=== PATIENT | female | born 1950 | race Asian ===

== ENCOUNTER 2019-02-18 17:47 | Emergency (ER) | payer MEDICARE, OTHER, SELFPAY ==
[2019-02-18 17:57] VITALS: BP 160/82; PULSE 78; RESP 18; TEMP 36.8; O2SAT 98
--- NOTE | 2019-02-18 18:58 | PC.NURSE ---
Patient complains of a Roughness under her tongue that started last Ananth. Denies pain and denies injury. Patient states she feels like it is spreading to other parts of her mouth. upon assessment, small red bumps noted throughout mouth. Pt states her swallowing is is not affected.
--- NOTE | 2019-02-18 19:55 | ED.DENTAL ---
HPI - Dental/Oral <NAOMY Moreno - Last Filed: 02/18/19 21:38> General Chief complaint: Dental/Oral Stated complaint: roughness to inside of mouth x2 days Time Seen by Provider: 02/18/19 18:49 Source: patient Mode of arrival: ambulatory Limitations: no limitations History of Present Illness HPI Narrative: Patient is a 5-year-old female nonsmoker with history of high blood pressure who presents with a chief complaint of a rough patches underneath her tongue. She states that the rough patch has been spreading to the top of her mouth. This has been going on for a week. She denies any sore throat, ear pain, nausea vomiting diarrhea, chest pain shortness of breath cough congestion. She has not spoken with her primary care provider or her dentist about these rough patches on the inside of her mouth. She has not taken anything to feel better. Related Data Home Medications Medication Instructions Recorded Confirmed famotidine [Pepcid] 40 mg PO Q DAY #0 01/19/18 losartan [Cozaar] 25 mg PO Q DAY PRN PRN #0 01/19/18 Previous Rx's Medication Instructions Recorded aspirin 325 mg PO QDAY #30 tab 01/05/18 Allergies Allergy/AdvReac Type Severity Reaction Status Date / Time No Known Drug Allergies Allergy Unknown Unverified 02/22/18 12:38 [NO KNOWN DRUG ALLERGIES] atorvastatin [From LIPITOR] AdvReac Unknown BACK PAIN, Unverified 02/22/18 12:38 SEVERE LEG CRAMPS rosuvastatin [From CRESTOR] AdvReac Unknown BACK PAIN, Unverified 02/22/18 12:38 SEVERE LEG CRAMPS Review of Systems <NAOMY Moreno - Last Filed: 02/18/19 21:38> Review of Systems GENERAL: Denies chills, fatigue, malaise, fever, sweats. HEENT: See HPI RESPIRATORY: Denies dyspnea, cough, wheezing, hemoptysis, sputum. CARDIOVASCULAR: Denies chest pain, palpitations, orthopnea, edema, GASTROINTESTINAL: Denies nausea, vomiting, abdominal pain, diarrhea, constipation, melena. : Denies dysuria, frequency, incontinence, hematuria, urinary retention. MUSCULOSKELETAL: denies weakness, joint pain, or bony pain SKIN: Denies rash, skin lesions, or other NEUROLOGIC: Denies weakness, headache, numbness, change in speech, confusion, seizures, incoordination. PSYCHIATRIC: No concerning psychosocial issues. 12 point review of systems is negative except for those stated above PFSH <GEOVANNA Moreno - Last Filed: 02/18/19 21:38> Social History Smoking Status: Never smoker Social History Smoking Status: Never smoker Exam <GEOVANNA Moreno - Last Filed: 02/18/19 21:38> Narrative Exam Narrative: GENERAL: Elderly female standing and rib appears anxious HEAD: Atraumatic. Normocephalic. No temporal or scalp tenderness. EYES: Pupils equal round and reactive. Extraocular motions intact. No scleral icterus. No injection or drainage. ENT: Nose without bleeding, purulent drainage or septal hematoma. Throat without erythema, tonsillar hypertrophy or exudate. slight petechiae noted on palate. Uvula midline. Airway patent. no irregularity noted underneath tongue. No palpable regularity underneath tongue. No palpable irregularity to palate. NECK: Trachea midline. No JVD or lymphadenopathy. Supple, nontender, no meningeal signs. CARDIOVASCULAR: Regular rate and rhythm RESPIRATORY: No cough. No increased respiratory effort. EXTREMITIES: No clubbing, cyanosis, or edema. No joint tenderness, effusion, or edema noted. BACK: Nontender without deformity or crepitance. No flank tenderness. NEURO: AOx3. SKIN: No rash or erythema. Initial Vital Signs Initial Vital Signs: Vital Signs Temperature 98.3 F 02/18/19 17:57 Pulse Rate 78 02/18/19 17:57 Respiratory Rate 18 02/18/19 17:57 Blood Pressure 160/82 H 02/18/19 17:57 Pulse Oximetry 98 02/18/19 17:57 <Haylee Mcarthur DO - Last Filed: 02/19/19 03:50> Initial Vital Signs Initial Vital Signs: Vital Signs Temperature 98.3 F 02/18/19 17:57 Pulse Rate 78 02/18/19 17:57 Respiratory Rate 18 02/18/19 17:57 Blood Pressure 160/82 H 02/18/19 17:57 Pulse Oximetry 98 02/18/19 17:57 Course <Nalini CondonKATHARINE foster-BC - Last Filed: 02/18/19 21:38> Vital Signs - 8 hr 02/18/19 17:57 Temperature 98.3 F Pulse Rate 78 Respiratory Rate 18 Blood Pressure 160/82 H Pulse Oximetry 98 <Haylee Mcarthur DO - Last Filed: 02/19/19 03:50> Vital Signs - 8 hr 02/18/19 17:57 Temperature 98.3 F Pulse Rate 78 Respiratory Rate 18 Blood Pressure 160/82 H Pulse Oximetry 98 MDM - Dental/Oral <Nalini HaywardKATHARINE-BC - Last Filed: 02/18/19 21:38> Lab Data Point of Care Testing Rapid Strep A Negative MDM Narrative Medical decision making narrative: The patient is a 68-year-old female presents with a rough patch underneath her tongue. She has no abnormalities on exam, is nontoxic and hemodynamically stable. she has no other complaints today other than the rough patches underneath her tongue and in her mouth. We did a strep, which was negative. discussed at length with patient that she needs to follow up with primary care provider this irritation persist. I suggested Biotene mouthwash or Cepacol drops in the meantime. Discussed going back to the emergency department for any acute concerns such as shortness of breath or chest pain. Patient stated understanding. <Haylee Mcarthur DO - Last Filed: 02/19/19 03:50> Lab Data Point of Care Testing Rapid Strep A Negative Discharge Plan Departure Patient Disposition: Home Clinical Impression: Throat irritation Discharge Date/Time: 02/18/19 19:53 Interventions: ED Discharge Assessment Last Done: 02/18/19 19:52 Instructions: DI for Viral Pharyngitis Activity Restrictions/Additional Instructions: Your strep swab was negative today. Please follow up with primary care provider if he has continued concerns about the roughness on the inside of her throat. If it is due to a virus, it will self resolve in a few days. You can try a lubricating mouthwash such as Biotene or a throat draft such as Cepacol. Prescriptions: No Action aspirin 325 MG tablet,delayed release (DR/EC) 325 mg PO QDAY Qty: 30 RF: 0 famotidine [Pepcid] 40 MG tablet 40 mg PO Q DAY Qty: 0 RF: 0 losartan [Cozaar] 25 MG tablet 25 mg PO Q DAY PRN PRNQty: 0 RF: 0 <Haylee Mcarthur DO - Last Filed: 02/19/19 03:50> Cosign ED Attending Cosedwinaature Attestation: I was immediately available in the department for consultation. Documentation has been reviewed. I agree with assessment and plan.
== END 2019-02-18 19:53 | disposition home or self-care (01) ==
PROVIDERS: Emergency Provider Nurse Practitioner Family
DX: J39.2 Other diseases of pharynx (principal)
CPT/HCPCS: 87880; 99282

== ENCOUNTER 2020-01-31 09:00 | Outpatient (RCR) | payer MEDICARE, OTHER, SELFPAY ==
--- NOTE | 2020-01-10 16:00 | PT.OIE ---
Current Diagnoses Pain in right hip (01/10/20) Pain in left hip (01/10/20) Sacrococcygeal disorders, not elsewhere classified (01/10/20) Low back pain (01/10/20) Visit Care Team Role Provider Type Julienne Hanna MD Attending Provider Non-Staff Referring Provider Specialty: Internal Medicine Address: [address] [place] [address], [phone] Email: Physical Therapy Initial Evaluation PT-OP-A Visit Information Start: 01/10/20 13:01 Freq: Status: Active Protocol: Document 01/10/20 13:00 EG (Rec: 01/11/20 07:35 EG [email or web address]) Out-Patient Physical Therapy Visit Information Visit Information Visit Type Initial Evaluation Visit Start Time 13:00 Visit Stop Time 13:50 Total Visit Minutes 50 Visit Number 1 Number of GLOVE FORMER Visits 0 Evaluation Information Evaluation Date 01/10/20 PT-OP-B Current Condition Start: 01/10/20 13:01 Freq: Status: Active Protocol: Document 01/10/20 13:00 EG (Rec: 01/10/20 13:17 EG [id number]) Current Condition History of Current Condition Onset Date 12/29/2019 Current Complaints Low back pain with L hip pain History of Current Condition Patient reported that she had low back pain 1.5 years ago and after going to PT, the pain went away. On 12/29 she experienced low back pain with the pain mostly in the L hip area. She reports that the low back pain is not bad and her main complaint is more L hip pain. She reports not doing anything unusual before experiencing her pain, but she did yoga on the earlier in the day which she typically does 3-4x/week. She didn't experience any sharp pain or notice anything different when doing yoga but she feels the pain in hip is getting worse. Standing up from a low sitting position makes it worse as well as rotating towards the left side. At night her pain is pretty painful and she uses a heat pack to help alleviate the pain to sleep. She reports an average of 5/10 pain in the hip which is worse in the morning, better when moving throughout the day and then by the evening, shehas a lot of problems; she also reports having restless leg syndrome. Along with yoga, patient also reports walking about an hour 3-4x/week. No increase in pain on L hip with walking but sitting irritates the pain and when she reports that when she sits in a high or low chair and gets off she walks funny. She denies any N/ T initially but later explains that she does have a little numbness in the L leg. She denies any changes in bowel/ bladder. Patient currently lives with her . Prior Treatments and Tests Heat Pack Past PT for back Treatment Goals Patient/Caregiver Goals Decrease your pain - go back to normal life. Went to PT for 2 months. Prior Functional Status Baseline Function- ADL's Independent Baseline Function- Mobility Independent Baseline Function- Gait Walk 3-4x/week with for an hour Baseline Function- Work/School Retired Baseline Function- Recreation/Hobbies Activties/Hobbies: Fishing, golfing, yoga. Current Functional Impairments (Reported) Functional Limitations- ADL's Discomfort sleeping on L side Functional Limitations- Mobility/Gait Morning have trouble with stairs. Functional Limitations- Recreation/ Not going to yoga, decreased Hobbies walking speed and distance with Personal Factors Other Personal Factors That May Effect Current medications: BP meds. Therapy/Recovery cholesterol, restless leg, antiacid. past history of going to ED for TIA due to loss of vision for 20 min. Osteopenia PT-OP-C Subjective Start: 01/10/20 13:01 Freq: Status: Active Protocol: Document 01/10/20 13:00 EG (Rec: 01/11/20 08:44 EG [email or web address]) Patient Questionnaires Oswestry Low Back Index Oswestry Score 40 Oswestry Impairment 40 to 59% Impaired (Score 40- 59) OP-PT Pain Assessment Pain Assessment Grid Paper Pain Assessment Grid Completed Yes: 5 in L hip and sacrum; 5 in lateral calf PT-OP-G Mobility & Gait Start: 01/10/20 13:01 Freq: Status: Active Protocol: Document 01/10/20 13:00 EG (Rec: 01/11/20 08:56 EG [email or web address]) OP Mobility Evaluation Transfers Sit to Stand Reports pain with this activity when seated for long duration or moving from deep sofa OP Gait Assessment Comments Gait Comments Patient had increased pelvic movement in L side with increased lateral deviation. Movement of pelvis assymmetrical PT-OP-J Posture/Palpation/Skin Start: 01/10/20 13:01 Freq: Status: Active Protocol: Document 01/10/20 13:00 EG (Rec: 01/11/20 08:56 EG [email or web address]) Palpation Assessment Location Four Palpation Location L1-L5 Palpation Findings Tenderness Palpation Details Patient had increased pain directly over L2-L3 but is just point tenderness. felt good for PA of L5. Three Palpation Location Bilateral Erector Spinae Palpation Findings None/Normal Palpation Details No increase in tenderness or tightness in bilateral erector spinae Two Palpation Location L ischial tuberosity Palpation Findings Tenderness Palpation Details Increased tenderness of L ischial tuberosity compares to R. Reported as same pain that patient experiences when seated One Palpation Location L gluteal musculature/ piriformis Palpation Findings None/Normal Palpation Details No increase in symptoms PT-OP-K Range of Motion Start: 01/10/20 13:01 Freq: Status: Active Protocol: Document 01/10/20 13:00 EG (Rec: 01/11/20 08:56 EG [email or web address]) Lumbar Spine Range of Motion Lumbar Spine Degrees Testing Position Standing Flexion 20 Extension 10 Lateral Flexion Left 20 Lateral Flexion Right 25 ROM Limitations Pain Comments P! in back moving in to lumbar flexion. P! moving in to lumbar extension. Lateral flexion to the R creates p! in L hip. Lateral flexion to L created p! in back PT-OP-L Special Tests Start: 01/10/20 13:01 Freq: Status: Active Protocol: Document 01/10/20 13:00 EG (Rec: 01/11/20 08:56 EG [email or web address]) Special Tests Lumbar Spine Special Tests Standing Flexion Test Results + Straight Leg Raise Test Results + Comments Increased p! in R leg at 45deg Hip Special Tests Piriformis Test Results - IVANIA Test Results - PT-OP-M Strength Start: 01/10/20 13:01 Freq: Status: Active Protocol: Document 01/10/20 13:00 EG (Rec: 01/11/20 08:56 EG [email or web address]) Hip Strength Hip Manual Muscle Testing Right Flexion (L2) 4- Good- Extension (S1) 4- Good- Abduction 4- Good- External Rotation 4 Good Internal Rotation 4 Good Left Flexion (L2) 4- Good- Extension (S1) 3+ Fair+ Abduction 3+ Fair+ External Rotation 4 Good Internal Rotation 4 Good Comments No increase in pain Knee Strength Knee Manual Muscle Testing Right Flexion (S2) 4 Good Extension (L3) 4 Good Left Flexion (S2) 4 Good Extension (L3) 4 Good Ankle/Foot Strength Ankle and Foot Manual Muscle Testing Right Dorsiflexion (L4) 4+ Good+ Left Dorsiflexion (L4) 4+ Good+ PT-OP-Q Treatments Start: 01/10/20 13:01 Freq: Status: Active Protocol: Document 01/10/20 13:00 EG (Rec: 01/11/20 08:59 EG [email or web address]) Therapeutic Exercises Supine Exercises Hamstring Stretch Supine Exercise Name HS stretch Side left Reps/Minutes 1 min Comments Given as HEP TA pelvic tilt Supine Exercise Name TA pelvic tilt Reps/Minutes 10x Comments given as HEP PT-OP-T Assessment and Plan Start: 01/10/20 13:01 Freq: Status: Active Protocol: Document 01/10/20 13:00 EG (Rec: 01/11/20 08:59 EG [email or web address]) Physical Therapy Assessment Rehab Potential Rehabilitation Potential Excellent Evaluation Complexity Number of Personal Factors/Comorbidities 3 or More Number of Body Systems Impaired 4 or More Clinical Presentation at Evaluation Stable Impairments Impairments Activity Tolerance,Functional Activities,Functional Mobility ,Gait,Pain,ROM,Soft Tissue Mobility,Strength Goals ROM Impairment Lumbar spine ROM Patient Experience Coordinator Goal (LTG) Patient will increase lumbar flexion to 40 degrees with no increase in pain in low back in 6 weeks to increase tolerance to forward folds in yoga. LTG Duration 6 weeks Stairs and walking tolerance Impairment Stairs and Walking tolerance Short Term Goal (STG) Patient will be able to do stairs in the morning after 5- 10 minutes of being awake with no more than 2/10 in L hip and back in 3 weeks. STG Duration 3 weeks Patient Experience Coordinator Goal (LTG) Patient will be able to return to prior walking distance and speed with no increase in pain in L hip and back in 6 weeks. LTG Duration 6 weeks Sitting Tolerance Impairment Sitting Tolerance Short Term Goal (STG) Patient will be able to sit for >30 minutes with no increase in pain greater than 1/10 in her L hip in 4 weeks. STG Duration 3 weeks Shelter Goal (LTG) Patient will be able to sit for greater than 1 hour and stand from deep sofa with no increase in pain in her L hip >1/10 in 8 weeks. LTG Duration 6 weeks Assessment Summary Assessment Patient is a pleasant 69 year old female who reports to physical therapy with cheif complaint of low back pain with increased pain in the L hip. Evaluation of hip and back ruled out hip as cause of symptoms with no complaint of pain with ROM or MMT nor any popping/snapping reported in hip in subjective. Patient does have increased pain with spinal ROM especially in to lumbar flexion as well as palpation of L ischial tuberosity indicating source of pain coming from low back due to movement defecits. Patient's hip musculature is weak and will benefit from increased strengthening of this area to help with stability and support of back when walking and performing SLS in yoga movements. Patient may have a slight strain in proximal hamstring near attachment to ischial tuberosity due to point tenderness of this area so flexibility of L posterior chain including L hamstring and L quadratus lumborum should be treated to increase tolerance of movement and load in this area. Patient will benefit from deep core strengthening as well as static and dynamic lateral and anterior/posterior movements to further increase stability and ROM in lumbar spine. Physical Therapy Plan Frequency and Duration Frequency of Treatment 2x/Week Duration of Treatment 6 weeks Plan of Care Start Date 01/10/20 Plan of Care End Date 02/21/20 Therapeutic Interventions Therapeutic Interventions Balance Training,Gait Training ,Home Exercise Program,Joint Mobilizations,Manual Therapy, Neuromuscular Re-education, Patient/Caregiver Education, Self-Care/Home Management,Soft Tissue Mobilization,Taping, Therapeutic Activities, Therapeutic Exercises Modalities Cold Pack/Ice Massage,Electric Stimulation,Ultrasound Next Visit Focus/Plan Next Note Type Treatment Note Next Visit Plan Assess proximal hamstring tenderness with contraction. Begin PA mobilization of L5. Increase core strengthening as well as slight extension movements such as sphinx and cobra as tolerated. Hannah Osuna DPT, supervised all treatment performed by, and agreed with the plan of care, as performed by Shawanda Rob, MAURICE.
--- NOTE | 2020-01-15 09:45 | PT.OTN ---
Current Diagnoses Pain in right hip (01/15/20) Pain in left hip (01/15/20) Sacrococcygeal disorders, not elsewhere classified (01/15/20) Low back pain (01/15/20) Physical Therapy Treatment Note PT-OP-A Visit Information Start: 01/10/20 13:01 Freq: Status: Active Protocol: Document 01/15/20 09:03 SP (Rec: 01/15/20 09:46 SP [id number]) Out-Patient Physical Therapy Visit Information Visit Information Visit Type Treatment Note Visit Start Time 09:03 Visit Stop Time 09:45 Total Visit Minutes 42 Visit Number 2 Number of STRATEGIC BUSINESS DEVELOPMENT Visits 1 PT-OP-B Current Condition Start: 01/10/20 13:01 Freq: Status: Active Protocol: Document 01/10/20 13:00 EG (Rec: 01/10/20 13:17 EG [id number]) Current Condition History of Current Condition Onset Date 12/29/2019 Current Complaints Low back pain with L hip pain History of Current Condition Patient reported that she had low back pain 1.5 years ago and after going to PT, the pain went away. On 12/29 she experienced low back pain with the pain mostly in the L hip area. She reports that the low back pain is not bad and her main complaint is more L hip pain. She reports not doing anything unusual before experiencing her pain, but she did yoga on the earlier in the day which she typically does 3-4x/week. She didn't experience any sharp pain or notice anything different when doing yoga but she feels the pain in hip is getting worse. Standing up from a low sitting position makes it worse as well as rotating towards the left side. At night her pain is pretty painful and she uses a heat pack to help alleviate the pain to sleep. She reports an average of 5/10 pain in the hip which is worse in the morning, better when moving throughout the day and then by the evening, shehas a lot of problems; she also reports having restless leg syndrome. Along with yoga, patient also reports walking about an hour 3-4x/week. No increase in pain on L hip with walking but sitting irritates the pain and when she reports that when she sits in a high or low chair and gets off she walks funny. She denies any N/ T initially but later explains that she does have a little numbness in the L leg. She denies any changes in bowel/ bladder. Patient currently lives with her . Prior Treatments and Tests Heat Pack Past PT for back Treatment Goals Patient/Caregiver Goals Decrease your pain - go back to normal life. Went to PT for 2 months. Prior Functional Status Baseline Function- ADL's Independent Baseline Function- Mobility Independent Baseline Function- Gait Walk 3-4x/week with for an hour Baseline Function- Work/School Retired Baseline Function- Recreation/Hobbies Activties/Hobbies: Fishing, golfing, yoga. Current Functional Impairments (Reported) Functional Limitations- ADL's Discomfort sleeping on L side Functional Limitations- Mobility/Gait Morning have trouble with stairs. Functional Limitations- Recreation/ Not going to yoga, decreased Hobbies walking speed and distance with Personal Factors Other Personal Factors That May Effect Current medications: BP meds. Therapy/Recovery cholesterol, restless leg, antiacid. past history of going to ED for TIA due to loss of vision for 20 min. Osteopenia PT-OP-C Subjective Start: 01/10/20 13:01 Freq: Status: Active Protocol: Document 01/15/20 09:03 SP (Rec: 01/15/20 09:46 SP [id number]) OP-PT Subjective Patient Comments Patient Comments Pt reported L LB and hip pain pre PT today, 01/21. Pt stated unsure if doing belly tighnening correctly and used towel with HS stretch due to hasn't found strap. Pt stated does yoga and wants to get back to doing. PT-OP-G Mobility & Gait Start: 01/10/20 13:01 Freq: Status: Active Protocol: Document 01/10/20 13:00 EG (Rec: 01/11/20 08:56 EG [email or web address]) OP Mobility Evaluation Transfers Sit to Stand Reports pain with this activity when seated for long duration or moving from deep sofa OP Gait Assessment Comments Gait Comments Patient had increased pelvic movement in L side with increased lateral deviation. Movement of pelvis assymmetrical PT-OP-J Posture/Palpation/Skin Start: 01/10/20 13:01 Freq: Status: Active Protocol: Document 01/10/20 13:00 EG (Rec: 01/11/20 08:56 EG [email or web address]) Palpation Assessment Location Four Palpation Location L1-L5 Palpation Findings Tenderness Palpation Details Patient had increased pain directly over L2-L3 but is just point tenderness. felt good for PA of L5. Three Palpation Location Bilateral Erector Spinae Palpation Findings None/Normal Palpation Details No increase in tenderness or tightness in bilateral erector spinae Two Palpation Location L ischial tuberosity Palpation Findings Tenderness Palpation Details Increased tenderness of L ischial tuberosity compares to R. Reported as same pain that patient experiences when seated One Palpation Location L gluteal musculature/ piriformis Palpation Findings None/Normal Palpation Details No increase in symptoms PT-OP-K Range of Motion Start: 01/10/20 13:01 Freq: Status: Active Protocol: Document 01/10/20 13:00 EG (Rec: 01/11/20 08:56 EG [email or web address]) Lumbar Spine Range of Motion Lumbar Spine Degrees Testing Position Standing Flexion 20 Extension 10 Lateral Flexion Left 20 Lateral Flexion Right 25 ROM Limitations Pain Comments P! in back moving in to lumbar flexion. P! moving in to lumbar extension. Lateral flexion to the R creates p! in L hip. Lateral flexion to L created p! in back PT-OP-L Special Tests Start: 01/10/20 13:01 Freq: Status: Active Protocol: Document 01/10/20 13:00 EG (Rec: 01/11/20 08:56 EG [email or web address]) Special Tests Lumbar Spine Special Tests Standing Flexion Test Results + Straight Leg Raise Test Results + Comments Increased p! in R leg at 45deg Hip Special Tests Piriformis Test Results - IVANIA Test Results - PT-OP-M Strength Start: 01/10/20 13:01 Freq: Status: Active Protocol: Document 01/10/20 13:00 EG (Rec: 01/11/20 08:56 EG [email or web address]) Hip Strength Hip Manual Muscle Testing Right Flexion (L2) 4- Good- Extension (S1) 4- Good- Abduction 4- Good- External Rotation 4 Good Internal Rotation 4 Good Left Flexion (L2) 4- Good- Extension (S1) 3+ Fair+ Abduction 3+ Fair+ External Rotation 4 Good Internal Rotation 4 Good Comments No increase in pain Knee Strength Knee Manual Muscle Testing Right Flexion (S2) 4 Good Extension (L3) 4 Good Left Flexion (S2) 4 Good Extension (L3) 4 Good Ankle/Foot Strength Ankle and Foot Manual Muscle Testing Right Dorsiflexion (L4) 4+ Good+ Left Dorsiflexion (L4) 4+ Good+ PT-OP-Q Treatments Start: 01/10/20 13:01 Freq: Status: Active Protocol: Document 01/15/20 09:03 SP (Rec: 01/15/20 09:46 SP [id number]) Therapeutic Exercises Supine Exercises core march Reps/Minutes 2x5 alternate BLE Comments cued PPT, slow muscular control to allow core facilitation Hamstring Stretch Supine Exercise Name HS stretch Side left Reps/Minutes 1 min Comments Given as HEP TA pelvic tilt Supine Exercise Name TA pelvic tilt Reps/Minutes 10x Comments given as HEP Prone Exercises child's pose side bend Side bilateral Reps/Minutes 30 x3 Sitting Exercises PF stretch Reps/Minutes 30 x2 L PT-OP-T Assessment and Plan Start: 01/10/20 13:01 Freq: Status: Active Protocol: Document 01/15/20 09:03 SP (Rec: 01/15/20 09:46 SP [id number]) Physical Therapy Assessment Goals ROM Impairment Lumbar spine ROM Wellness Coordinator Goal (LTG) Patient will increase lumbar flexion to 40 degrees with no increase in pain in low back in 6 weeks to increase tolerance to forward folds in yoga. LTG Duration 6 weeks Stairs and walking tolerance Impairment Stairs and Walking tolerance Short Term Goal (STG) Patient will be able to do stairs in the morning after 5- 10 minutes of being awake with no more than 2/10 in L hip and back in 3 weeks. STG Duration 3 weeks Wellness Coordinator Goal (LTG) Patient will be able to return to prior walking distance and speed with no increase in pain in L hip and back in 6 weeks. LTG Duration 6 weeks Sitting Tolerance Impairment Sitting Tolerance Short Term Goal (STG) Patient will be able to sit for >30 minutes with no increase in pain greater than 1/10 in her L hip in 4 weeks. STG Duration 3 weeks Wellness Coordinator Goal (LTG) Patient will be able to sit for greater than 1 hour and stand from deep sofa with no increase in pain in her L hip >1/10 in 8 weeks. LTG Duration 6 weeks Assessment Summary Assessment Pt responded well to HEP review pelvic tilt/Hs stretch and added trans ab january, LS rotation to tolerant range and PF/ QL stretching today. Pt stated LB and L hip feel better end of tx than when arrived. Physical Therapy Plan Frequency and Duration Frequency of Treatment 2x/Week Duration of Treatment 6 weeks Plan of Care Start Date 01/10/20 Plan of Care End Date 02/21/20 Therapeutic Interventions Therapeutic Interventions Balance Training,Gait Training ,Home Exercise Program,Joint Mobilizations,Manual Therapy, Neuromuscular Re-education, Patient/Caregiver Education, Self-Care/Home Management,Soft Tissue Mobilization,Taping, Therapeutic Activities, Therapeutic Exercises Modalities Cold Pack/Ice Massage,Electric Stimulation,Ultrasound Next Visit Focus/Plan Next Note Type Treatment Note Next Visit Plan Assess TAb engagement, response to added core march, LS rotation, PF seated stretch , child's pose sidebend last tx Continue PT POC: Begin PA mobilization of L5. Increase core strengthening as well as slight extension movements such as sphinx and cobra as tolerated.
--- NOTE | 2020-01-17 15:24 | PT.OTN ---
Current Diagnoses Pain in right hip (01/17/20) Pain in left hip (01/17/20) Sacrococcygeal disorders, not elsewhere classified (01/17/20) Low back pain (01/17/20) Physical Therapy Treatment Note PT-OP-A Visit Information Start: 01/10/20 13:01 Freq: Status: Active Protocol: Document 01/17/20 13:01 EG (Rec: 01/17/20 14:19 EG [id number]) Out-Patient Physical Therapy Visit Information Visit Information Visit Type Treatment Note Visit Start Time 13:01 Visit Stop Time 13:45 Total Visit Minutes 44 Visit Number 3 Number of NOUGAT CUTTER MACHINE Visits 0 PT-OP-B Current Condition Start: 01/10/20 13:01 Freq: Status: Active Protocol: Document 01/10/20 13:00 EG (Rec: 01/10/20 13:17 EG [id number]) Current Condition History of Current Condition Onset Date 12/29/2019 Current Complaints Low back pain with L hip pain History of Current Condition Patient reported that she had low back pain 1.5 years ago and after going to PT, the pain went away. On 12/29 she experienced low back pain with the pain mostly in the L hip area. She reports that the low back pain is not bad and her main complaint is more L hip pain. She reports not doing anything unusual before experiencing her pain, but she did yoga on the earlier in the day which she typically does 3-4x/week. She didn't experience any sharp pain or notice anything different when doing yoga but she feels the pain in hip is getting worse. Standing up from a low sitting position makes it worse as well as rotating towards the left side. At night her pain is pretty painful and she uses a heat pack to help alleviate the pain to sleep. She reports an average of 5/10 pain in the hip which is worse in the morning, better when moving throughout the day and then by the evening, shehas a lot of problems; she also reports having restless leg syndrome. Along with yoga, patient also reports walking about an hour 3-4x/week. No increase in pain on L hip with walking but sitting irritates the pain and when she reports that when she sits in a high or low chair and gets off she walks funny. She denies any N/ T initially but later explains that she does have a little numbness in the L leg. She denies any changes in bowel/ bladder. Patient currently lives with her . Prior Treatments and Tests Heat Pack Past PT for back Treatment Goals Patient/Caregiver Goals Decrease your pain - go back to normal life. Went to PT for 2 months. Prior Functional Status Baseline Function- ADL's Independent Baseline Function- Mobility Independent Baseline Function- Gait Walk 3-4x/week with for an hour Baseline Function- Work/School Retired Baseline Function- Recreation/Hobbies Activties/Hobbies: Fishing, golfing, yoga. Current Functional Impairments (Reported) Functional Limitations- ADL's Discomfort sleeping on L side Functional Limitations- Mobility/Gait Morning have trouble with stairs. Functional Limitations- Recreation/ Not going to yoga, decreased Hobbies walking speed and distance with Personal Factors Other Personal Factors That May Effect Current medications: BP meds. Therapy/Recovery cholesterol, restless leg, antiacid. past history of going to ED for TIA due to loss of vision for 20 min. Osteopenia PT-OP-C Subjective Start: 01/10/20 13:01 Freq: Status: Active Protocol: Document 01/17/20 13:01 EG (Rec: 01/17/20 14:19 EG [id number]) OP-PT Subjective Patient Comments Patient Comments Patient reported that her hip pain is the worst in the morning and feels it is worse since starting therapy. She was able to walk 1 hour yesterday but feels she is going a little slower. She reports a 3-4/10 pain right now. Patient Reported Progress Worse PT-OP-G Mobility & Gait Start: 01/10/20 13:01 Freq: Status: Active Protocol: Document 01/10/20 13:00 EG (Rec: 01/11/20 08:56 EG [email or web address]) OP Mobility Evaluation Transfers Sit to Stand Reports pain with this activity when seated for long duration or moving from deep sofa OP Gait Assessment Comments Gait Comments Patient had increased pelvic movement in L side with increased lateral deviation. Movement of pelvis assymmetrical PT-OP-J Posture/Palpation/Skin Start: 01/10/20 13:01 Freq: Status: Active Protocol: Document 01/10/20 13:00 EG (Rec: 01/11/20 08:56 EG [email or web address]) Palpation Assessment Location Four Palpation Location L1-L5 Palpation Findings Tenderness Palpation Details Patient had increased pain directly over L2-L3 but is just point tenderness. felt good for PA of L5. Three Palpation Location Bilateral Erector Spinae Palpation Findings None/Normal Palpation Details No increase in tenderness or tightness in bilateral erector spinae Two Palpation Location L ischial tuberosity Palpation Findings Tenderness Palpation Details Increased tenderness of L ischial tuberosity compares to R. Reported as same pain that patient experiences when seated One Palpation Location L gluteal musculature/ piriformis Palpation Findings None/Normal Palpation Details No increase in symptoms PT-OP-K Range of Motion Start: 01/10/20 13:01 Freq: Status: Active Protocol: Document 01/10/20 13:00 EG (Rec: 01/11/20 08:56 EG [email or web address]) Lumbar Spine Range of Motion Lumbar Spine Degrees Testing Position Standing Flexion 20 Extension 10 Lateral Flexion Left 20 Lateral Flexion Right 25 ROM Limitations Pain Comments P! in back moving in to lumbar flexion. P! moving in to lumbar extension. Lateral flexion to the R creates p! in L hip. Lateral flexion to L created p! in back PT-OP-L Special Tests Start: 01/10/20 13:01 Freq: Status: Active Protocol: Document 01/10/20 13:00 EG (Rec: 01/11/20 08:56 EG [email or web address]) Special Tests Lumbar Spine Special Tests Standing Flexion Test Results + Straight Leg Raise Test Results + Comments Increased p! in R leg at 45deg Hip Special Tests Piriformis Test Results - IVANIA Test Results - PT-OP-M Strength Start: 01/10/20 13:01 Freq: Status: Active Protocol: Document 01/10/20 13:00 EG (Rec: 01/11/20 08:56 EG [email or web address]) Hip Strength Hip Manual Muscle Testing Right Flexion (L2) 4- Good- Extension (S1) 4- Good- Abduction 4- Good- External Rotation 4 Good Internal Rotation 4 Good Left Flexion (L2) 4- Good- Extension (S1) 3+ Fair+ Abduction 3+ Fair+ External Rotation 4 Good Internal Rotation 4 Good Comments No increase in pain Knee Strength Knee Manual Muscle Testing Right Flexion (S2) 4 Good Extension (L3) 4 Good Left Flexion (S2) 4 Good Extension (L3) 4 Good Ankle/Foot Strength Ankle and Foot Manual Muscle Testing Right Dorsiflexion (L4) 4+ Good+ Left Dorsiflexion (L4) 4+ Good+ PT-OP-Q Treatments Start: 01/10/20 13:01 Freq: Status: Active Protocol: Document 01/17/20 13:01 EG (Rec: 01/17/20 14:19 EG [id number]) Cardio Equipment Treadmill Duration (Minutes) 5 Speed 2.2-2.5 Incline 1.0 Therapeutic Exercises Supine Exercises LTR supine Supine Exercise Name Supine LTR Reps/Minutes 10 each side Comments no increase in pain core march Supine Exercise Name TA engagement with march Reps/Minutes 10x each leg Comments cued PPT, slow muscular control to allow core facilitation TA pelvic tilt Supine Exercise Name TA pelvic tilt Reps/Minutes 10x Comments help with correct muscle contraction - cough Prone Exercises Cobra Prone Exercise Name Cobra (small and large movements) Reps/Minutes 8x low, 8x high Comments no increase in pain; cue to bring shoulders back child's pose side bend Prone Exercise Name Child's pose with side bend Side bilateral Reps/Minutes 30 sec each side Comments pillow under heels Standing Exercises Step-up Standing Exercise Name Step-up Side bilateral Equipment Used 6 inch step Comments 10x each side Hip Abduction/extension Standing Exercise Name Hip abduction/Hip extension Side bilateral Equipment Used stair rail for support Reps/Minutes 2x10 each leg and each direction Comments Slightly more pain in L hip at end of set 2 gastroc/HS stretch Standing Exercise Name gastroc/HS stretch Side bilateral Reps/Minutes 30sec each Comments 2x30 for gastroc Other Exercises Cat/Cow Other Exercise Name Cat/Cow Reps/Minutes 5x Comments tactile cue in low back to emphasize movement here Manual Therapy Treatment Soft Tissue Mobilization Piriformis Trigger Point Release Body Location Piriformis Mobilization Type Trigger Point Release Intensity/Depth Deep Body Position side-lying Comments [place] increase tension while performing with some release after Joint Mobilizations 1 Joint Central and Unilateral PA glide L4/L5 Direction PA Grade II Body Position Prone Reps/Duration 90 sec each position Comments felt good to patient Manual Techniques Contract/Relax Type Contract/Relax Body Location Proximal Hamstring Body Position Supine Reps/Duration 5x Comments L Hamstring stretch PT-OP-T Assessment and Plan Start: 01/10/20 13:01 Freq: Status: Active Protocol: Document 01/17/20 13:01 EG (Rec: 01/17/20 14:19 EG [id number]) Physical Therapy Assessment Assessment Summary Assessment Patient is having increased hip pain in the morning after starting therapy. HEP was reviewed as well as sleeping position to ensure good form when doing these motions. Patient does have a history of an L4/L5 disk bulge so extension based exercises as well as hip and core strengthening should be emphasized to decrease and referring pain from back. L4/ L5 PA mobilizations are also beneficial for patient. There was also an increase in tension and pain in piriformis so trigger point release done . Patient reported she felt slightly better at the end of the session. Physical Therapy Plan Frequency and Duration Frequency of Treatment 2x/Week Duration of Treatment 6 weeks Plan of Care Start Date 01/10/20 Plan of Care End Date 02/21/20 Next Visit Focus/Plan Next Note Type Treatment Note Next Visit Plan Continue Central and unilateral PA mobilization of L5. Assess how patient felt after last session. Trigger point/myofascial release of piriformis. Continue core and hip strengthening as tolerated . Hannah Osuna DPT, supervised all treatment performed by, and agreed with the plan of care, as performed by MAURICE Castillo.
--- NOTE | 2020-01-22 13:10 | PT.OTN ---
Current Diagnoses Pain in right hip (01/22/20) Pain in left hip (01/22/20) Sacrococcygeal disorders, not elsewhere classified (01/22/20) Low back pain (01/22/20) Physical Therapy Treatment Note PT-OP-A Visit Information Start: 01/10/20 13:01 Freq: Status: Active Protocol: Document 01/22/20 12:15 SP (Rec: 01/22/20 13:25 SP [id number]) Out-Patient Physical Therapy Visit Information Visit Information Visit Type Treatment Note Visit Start Time 12:15 Visit Stop Time 13:10 Total Visit Minutes 55 Visit Number 4 Number of AVIATION PROGRAM MANAGER Visits 1 PT-OP-B Current Condition Start: 01/10/20 13:01 Freq: Status: Active Protocol: Document 01/10/20 13:00 EG (Rec: 01/10/20 13:17 EG [id number]) Current Condition History of Current Condition Onset Date 12/29/2019 Current Complaints Low back pain with L hip pain History of Current Condition Patient reported that she had low back pain 1.5 years ago and after going to PT, the pain went away. On 12/29 she experienced low back pain with the pain mostly in the L hip area. She reports that the low back pain is not bad and her main complaint is more L hip pain. She reports not doing anything unusual before experiencing her pain, but she did yoga on the earlier in the day which she typically does 3-4x/week. She didn't experience any sharp pain or notice anything different when doing yoga but she feels the pain in hip is getting worse. Standing up from a low sitting position makes it worse as well as rotating towards the left side. At night her pain is pretty painful and she uses a heat pack to help alleviate the pain to sleep. She reports an average of 5/10 pain in the hip which is worse in the morning, better when moving throughout the day and then by the evening, shehas a lot of problems; she also reports having restless leg syndrome. Along with yoga, patient also reports walking about an hour 3-4x/week. No increase in pain on L hip with walking but sitting irritates the pain and when she reports that when she sits in a high or low chair and gets off she walks funny. She denies any N/ T initially but later explains that she does have a little numbness in the L leg. She denies any changes in bowel/ bladder. Patient currently lives with her . Prior Treatments and Tests Heat Pack Past PT for back Treatment Goals Patient/Caregiver Goals Decrease your pain - go back to normal life. Went to PT for 2 months. Prior Functional Status Baseline Function- ADL's Independent Baseline Function- Mobility Independent Baseline Function- Gait Walk 3-4x/week with for an hour Baseline Function- Work/School Retired Baseline Function- Recreation/Hobbies Activties/Hobbies: Fishing, golfing, yoga. Current Functional Impairments (Reported) Functional Limitations- ADL's Discomfort sleeping on L side Functional Limitations- Mobility/Gait Morning have trouble with stairs. Functional Limitations- Recreation/ Not going to yoga, decreased Hobbies walking speed and distance with Personal Factors Other Personal Factors That May Effect Current medications: BP meds. Therapy/Recovery cholesterol, restless leg, antiacid. past history of going to ED for TIA due to loss of vision for 20 min. Osteopenia PT-OP-C Subjective Start: 01/10/20 13:01 Freq: Status: Active Protocol: Document 01/22/20 12:15 SP (Rec: 01/22/20 13:25 SP [id number]) OP-PT Subjective Patient Comments Patient Comments Pt reported R hip started to hurt after last tx but good today. Pt noticed has had lBP on L when rotates trunk left for toileting hygiene mgt wiping and still more L than right hip pain after wakes up from sleeping. Pt stated compliant with walking about an hour on [address] to end and back and supine exercises. PT-OP-G Mobility & Gait Start: 01/10/20 13:01 Freq: Status: Active Protocol: Document 01/10/20 13:00 EG (Rec: 01/11/20 08:56 EG [email or web address]) OP Mobility Evaluation Transfers Sit to Stand Reports pain with this activity when seated for long duration or moving from deep sofa OP Gait Assessment Comments Gait Comments Patient had increased pelvic movement in L side with increased lateral deviation. Movement of pelvis assymmetrical PT-OP-J Posture/Palpation/Skin Start: 01/10/20 13:01 Freq: Status: Active Protocol: Document 01/10/20 13:00 EG (Rec: 01/11/20 08:56 EG [email or web address]) Palpation Assessment Location Four Palpation Location L1-L5 Palpation Findings Tenderness Palpation Details Patient had increased pain directly over L2-L3 but is just point tenderness. felt good for PA of L5. Three Palpation Location Bilateral Erector Spinae Palpation Findings None/Normal Palpation Details No increase in tenderness or tightness in bilateral erector spinae Two Palpation Location L ischial tuberosity Palpation Findings Tenderness Palpation Details Increased tenderness of L ischial tuberosity compares to R. Reported as same pain that patient experiences when seated One Palpation Location L gluteal musculature/ piriformis Palpation Findings None/Normal Palpation Details No increase in symptoms PT-OP-K Range of Motion Start: 01/10/20 13:01 Freq: Status: Active Protocol: Document 01/10/20 13:00 EG (Rec: 01/11/20 08:56 EG [email or web address]) Lumbar Spine Range of Motion Lumbar Spine Degrees Testing Position Standing Flexion 20 Extension 10 Lateral Flexion Left 20 Lateral Flexion Right 25 ROM Limitations Pain Comments P! in back moving in to lumbar flexion. P! moving in to lumbar extension. Lateral flexion to the R creates p! in L hip. Lateral flexion to L created p! in back PT-OP-L Special Tests Start: 01/10/20 13:01 Freq: Status: Active Protocol: Document 01/10/20 13:00 EG (Rec: 01/11/20 08:56 EG [email or web address]) Special Tests Lumbar Spine Special Tests Standing Flexion Test Results + Straight Leg Raise Test Results + Comments Increased p! in R leg at 45deg Hip Special Tests Piriformis Test Results - IVANIA Test Results - PT-OP-M Strength Start: 01/10/20 13:01 Freq: Status: Active Protocol: Document 01/10/20 13:00 EG (Rec: 01/11/20 08:56 EG [email or web address]) Hip Strength Hip Manual Muscle Testing Right Flexion (L2) 4- Good- Extension (S1) 4- Good- Abduction 4- Good- External Rotation 4 Good Internal Rotation 4 Good Left Flexion (L2) 4- Good- Extension (S1) 3+ Fair+ Abduction 3+ Fair+ External Rotation 4 Good Internal Rotation 4 Good Comments No increase in pain Knee Strength Knee Manual Muscle Testing Right Flexion (S2) 4 Good Extension (L3) 4 Good Left Flexion (S2) 4 Good Extension (L3) 4 Good Ankle/Foot Strength Ankle and Foot Manual Muscle Testing Right Dorsiflexion (L4) 4+ Good+ Left Dorsiflexion (L4) 4+ Good+ PT-OP-Q Treatments Start: 01/10/20 13:01 Freq: Status: Active Protocol: Document 01/22/20 12:15 SP (Rec: 01/22/20 13:25 SP [id number]) Cardio Equipment Treadmill Duration (Minutes) 5 Speed 2.3-2.5 Incline 1.0 Therapeutic Exercises Supine Exercises LTR supine Supine Exercise Name Supine LTR Reps/Minutes 10 each side Comments no increase in pain core march Supine Exercise Name TA engagement with march Reps/Minutes 20x each leg Comments cued PPT, slow muscular control to allow core facilitation Hamstring Stretch Supine Exercise Name HS stretch Side bilateral Equipment Used strap Reps/Minutes 1 min Comments Given as HEP Prone Exercises LE hip ext Side bilateral Reps/Minutes 2x5 Comments cued prone on hands Cobra Prone Exercise Name Cobra (small and large movements) Reps/Minutes 30 sec hold stretch, 8x low, 8x high Comments no increase in pain; cue to bring shoulders back child's pose side bend Prone Exercise Name Child's pose with side bend Side bilateral Reps/Minutes 30 sec each side Comments pillow under heels Sitting Exercises PF stretch Side bilateral Reps/Minutes 30 x2 Comments R tighter than L today Other Exercises modified bird dog Other Exercise Name LE only Side bilateral Equipment Used small cymro ball under belly, noodle under wrists Reps/Minutes 2x5 each Comments cued level pelvis Cat/Cow Other Exercise Name Cat/Cow Equipment Used noodle under wrists Reps/Minutes 5x Comments tactile cue in low back to emphasize movement here Manual Therapy Treatment Soft Tissue Mobilization Piriformis Trigger Point Release Body Location Piriformis Mobilization Type Trigger Point Release Intensity/Depth Moderate Body Position Standing Comments Instruction in self performance racquetball at wall in R >L PF for home relief. Joint Mobilizations 1 Joint Central and Unilateral PA glide L4/L5 Direction PA Grade II Body Position Prone Reps/Duration 90 sec each position Comments felt good to patient PT-OP-T Assessment and Plan Start: 01/10/20 13:01 Freq: Status: Active Protocol: Document 01/22/20 12:15 SP (Rec: 01/22/20 13:25 SP [id number]) Physical Therapy Assessment Goals ROM Impairment Lumbar spine ROM Roll Line Operator Goal (LTG) Patient will increase lumbar flexion to 40 degrees with no increase in pain in low back in 6 weeks to increase tolerance to forward folds in yoga. LTG Duration 6 weeks Stairs and walking tolerance Impairment Stairs and Walking tolerance Short Term Goal (STG) Patient will be able to do stairs in the morning after 5- 10 minutes of being awake with no more than 2/10 in L hip and back in 3 weeks. STG Duration 3 weeks Jail Goal (LTG) Patient will be able to return to prior walking distance and speed with no increase in pain in L hip and back in 6 weeks. LTG Duration 6 weeks Sitting Tolerance Impairment Sitting Tolerance Short Term Goal (STG) Patient will be able to sit for >30 minutes with no increase in pain greater than 1/10 in her L hip in 4 weeks. STG Duration 3 weeks Jail Goal (LTG) Patient will be able to sit for greater than 1 hour and stand from deep sofa with no increase in pain in her L hip >1/10 in 8 weeks. LTG Duration 6 weeks Assessment Summary Assessment Tx focused on flexibility in LS and hips and added self STMs using racquetball at wall on PF for home self relief application. Pt responded well to HEP review supine/prone and added LE ext prone and modified LE bird dog with support over cymro ball, required noodle under B wrists for comfort, uses rolled yoga mat at classes. Pt stated no pain end of tx but today was a good day. Physical Therapy Plan Frequency and Duration Frequency of Treatment 2x/Week Duration of Treatment 6 weeks Plan of Care Start Date 01/10/20 Plan of Care End Date 02/21/20 Therapeutic Interventions Therapeutic Interventions Balance Training,Gait Training ,Home Exercise Program,Joint Mobilizations,Manual Therapy, Neuromuscular Re-education, Patient/Caregiver Education, Self-Care/Home Management,Soft Tissue Mobilization,Taping, Therapeutic Activities, Therapeutic Exercises Modalities Cold Pack/Ice Massage,Electric Stimulation,Ultrasound Next Visit Focus/Plan Next Note Type Treatment Note Next Visit Plan Continue Central and unilateral PA mobilization of L5. Assess how patient felt after last session. Trigger point/myofascial release of piriformis. Continue core and hip strengthening as tolerated .
--- NOTE | 2020-01-25 14:30 | PT.OTN ---
Current Diagnoses Pain in right hip (01/25/20) Pain in left hip (01/25/20) Sacrococcygeal disorders, not elsewhere classified (01/25/20) Low back pain (01/25/20) Physical Therapy Treatment Note PT-OP-A Visit Information Start: 01/10/20 13:01 Freq: Status: Active Protocol: Document 01/25/20 13:49 SP (Rec: 01/25/20 15:28 SP [id number]) Out-Patient Physical Therapy Visit Information Visit Information Visit Type Treatment Note Visit Start Time 13:49 Visit Stop Time 14:30 Total Visit Minutes 41 Visit Number 5 Number of CHILD CARE COORDINATOR Visits 2 PT-OP-B Current Condition Start: 01/10/20 13:01 Freq: Status: Active Protocol: Document 01/10/20 13:00 EG (Rec: 01/10/20 13:17 EG [id number]) Current Condition History of Current Condition Onset Date 12/29/2019 Current Complaints Low back pain with L hip pain History of Current Condition Patient reported that she had low back pain 1.5 years ago and after going to PT, the pain went away. On 12/29 she experienced low back pain with the pain mostly in the L hip area. She reports that the low back pain is not bad and her main complaint is more L hip pain. She reports not doing anything unusual before experiencing her pain, but she did yoga on the earlier in the day which she typically does 3-4x/week. She didn't experience any sharp pain or notice anything different when doing yoga but she feels the pain in hip is getting worse. Standing up from a low sitting position makes it worse as well as rotating towards the left side. At night her pain is pretty painful and she uses a heat pack to help alleviate the pain to sleep. She reports an average of 5/10 pain in the hip which is worse in the morning, better when moving throughout the day and then by the evening, shehas a lot of problems; she also reports having restless leg syndrome. Along with yoga, patient also reports walking about an hour 3-4x/week. No increase in pain on L hip with walking but sitting irritates the pain and when she reports that when she sits in a high or low chair and gets off she walks funny. She denies any N/ T initially but later explains that she does have a little numbness in the L leg. She denies any changes in bowel/ bladder. Patient currently lives with her . Prior Treatments and Tests Heat Pack Past PT for back Treatment Goals Patient/Caregiver Goals Decrease your pain - go back to normal life. Went to PT for 2 months. Prior Functional Status Baseline Function- ADL's Independent Baseline Function- Mobility Independent Baseline Function- Gait Walk 3-4x/week with for an hour Baseline Function- Work/School Retired Baseline Function- Recreation/Hobbies Activties/Hobbies: Fishing, golfing, yoga. Current Functional Impairments (Reported) Functional Limitations- ADL's Discomfort sleeping on L side Functional Limitations- Mobility/Gait Morning have trouble with stairs. Functional Limitations- Recreation/ Not going to yoga, decreased Hobbies walking speed and distance with Personal Factors Other Personal Factors That May Effect Current medications: BP meds. Therapy/Recovery cholesterol, restless leg, antiacid. past history of going to ED for TIA due to loss of vision for 20 min. Osteopenia PT-OP-C Subjective Start: 01/10/20 13:01 Freq: Status: Active Protocol: Document 01/25/20 13:49 SP (Rec: 01/25/20 15:28 SP [id number]) OP-PT Subjective Patient Comments Patient Comments Pt reports only pain in L hip around to the L LB in the morning, in weird positions laying down but better as day progresses. No pain pre PT. Pt stated was able to walk [place] about 1 hr 15 min with no pain on uneven trails. PT-OP-G Mobility & Gait Start: 01/10/20 13:01 Freq: Status: Active Protocol: Document 01/10/20 13:00 EG (Rec: 01/11/20 08:56 EG [email or web address]) OP Mobility Evaluation Transfers Sit to Stand Reports pain with this activity when seated for long duration or moving from deep sofa OP Gait Assessment Comments Gait Comments Patient had increased pelvic movement in L side with increased lateral deviation. Movement of pelvis assymmetrical PT-OP-J Posture/Palpation/Skin Start: 01/10/20 13:01 Freq: Status: Active Protocol: Document 01/10/20 13:00 EG (Rec: 01/11/20 08:56 EG [email or web address]) Palpation Assessment Location Four Palpation Location L1-L5 Palpation Findings Tenderness Palpation Details Patient had increased pain directly over L2-L3 but is just point tenderness. felt good for PA of L5. Three Palpation Location Bilateral Erector Spinae Palpation Findings None/Normal Palpation Details No increase in tenderness or tightness in bilateral erector spinae Two Palpation Location L ischial tuberosity Palpation Findings Tenderness Palpation Details Increased tenderness of L ischial tuberosity compares to R. Reported as same pain that patient experiences when seated One Palpation Location L gluteal musculature/ piriformis Palpation Findings None/Normal Palpation Details No increase in symptoms PT-OP-K Range of Motion Start: 01/10/20 13:01 Freq: Status: Active Protocol: Document 01/10/20 13:00 EG (Rec: 01/11/20 08:56 EG [email or web address]) Lumbar Spine Range of Motion Lumbar Spine Degrees Testing Position Standing Flexion 20 Extension 10 Lateral Flexion Left 20 Lateral Flexion Right 25 ROM Limitations Pain Comments P! in back moving in to lumbar flexion. P! moving in to lumbar extension. Lateral flexion to the R creates p! in L hip. Lateral flexion to L created p! in back PT-OP-L Special Tests Start: 01/10/20 13:01 Freq: Status: Active Protocol: Document 01/10/20 13:00 EG (Rec: 01/11/20 08:56 EG [email or web address]) Special Tests Lumbar Spine Special Tests Standing Flexion Test Results + Straight Leg Raise Test Results + Comments Increased p! in R leg at 45deg Hip Special Tests Piriformis Test Results - IVANIA Test Results - PT-OP-M Strength Start: 01/10/20 13:01 Freq: Status: Active Protocol: Document 01/10/20 13:00 EG (Rec: 01/11/20 08:56 EG [email or web address]) Hip Strength Hip Manual Muscle Testing Right Flexion (L2) 4- Good- Extension (S1) 4- Good- Abduction 4- Good- External Rotation 4 Good Internal Rotation 4 Good Left Flexion (L2) 4- Good- Extension (S1) 3+ Fair+ Abduction 3+ Fair+ External Rotation 4 Good Internal Rotation 4 Good Comments No increase in pain Knee Strength Knee Manual Muscle Testing Right Flexion (S2) 4 Good Extension (L3) 4 Good Left Flexion (S2) 4 Good Extension (L3) 4 Good Ankle/Foot Strength Ankle and Foot Manual Muscle Testing Right Dorsiflexion (L4) 4+ Good+ Left Dorsiflexion (L4) 4+ Good+ PT-OP-Q Treatments Start: 01/10/20 13:01 Freq: Status: Active Protocol: Document 01/25/20 13:49 SP (Rec: 01/25/20 15:28 SP [id number]) Cardio Equipment Treadmill Duration (Minutes) 8 Speed 2.3-2.5 Incline 1.0-2.0 Other no Ue support Gym Equipment Cable Column (Body Solid) pull down Resistance #2 Reps/Time x10 Rows Resistance #2 Reps/Time x10 Therapeutic Exercises Supine Exercises LTR supine Supine Exercise Name Supine LTR Reps/Minutes 10 each side hold 5-10 sec each Comments no increase in pain Prone Exercises LE hip ext Side bilateral Reps/Minutes x10 Comments cued prone on hands Sitting Exercises PF stretch Side bilateral Reps/Minutes 30 x2 Comments R tighter than L today Standing Exercises Step-up Standing Exercise Name single repetitive Step-up Side bilateral Equipment Used 4 step x10, 6 inch step x10 Comments no Ue support gastroc/HS stretch Standing Exercise Name gastroc/HS stretch Side bilateral Reps/Minutes 30sec each Comments 2x30 for gastroc Other Exercises modified bird dog Other Exercise Name bird dog Ue/ LE ext together Side bilateral Reps/Minutes x5 Comments cued slow pacing, on fists to assist wrist comfort Manual Therapy Treatment Soft Tissue Mobilization Piriformis Trigger Point Release Body Location L pirformis, Glut Med, TFL Mobilization Type Trigger Point Release Intensity/Depth Moderate Body Position Prone Comments PRone manual, standing theracane Instruction in self performance or racquetball at wall in R >L PF for home relief. PT-OP-T Assessment and Plan Start: 01/10/20 13:01 Freq: Status: Active Protocol: Document 01/25/20 13:49 SP (Rec: 01/25/20 15:28 SP [id number]) Physical Therapy Assessment Goals ROM Impairment Lumbar spine ROM [facility] Goal (LTG) Patient will increase lumbar flexion to 40 degrees with no increase in pain in low back in 6 weeks to increase tolerance to forward folds in yoga. LTG Duration 6 weeks Stairs and walking tolerance Impairment Stairs and Walking tolerance Short Term Goal (STG) Patient will be able to do stairs in the morning after 5- 10 minutes of being awake with no more than 2/10 in L hip and back in 3 weeks. STG Duration 3 weeks [facility] Goal (LTG) Patient will be able to return to prior walking distance and speed with no increase in pain in L hip and back in 6 weeks. LTG Duration 6 weeks Sitting Tolerance Impairment Sitting Tolerance Short Term Goal (STG) Patient will be able to sit for >30 minutes with no increase in pain greater than 1/10 in her L hip in 4 weeks. STG Duration 3 weeks [facility] Goal (LTG) Patient will be able to sit for greater than 1 hour and stand from deep sofa with no increase in pain in her L hip >1/10 in 8 weeks. LTG Duration 6 weeks Assessment Summary Assessment Pt reported when used to go to the gym did 2.8 mph on TM at 7% incline with no UE support, would like to get back to doing that. Instructed patient use of theracane over glut med for self STMs after manual and she stated similar to cane uses at home but might get racquet ball as well for wall as did last tx. Provided cues for prone L ext and bird dog for proper form with slow pacing. Pt responded well and stated helpful with no pain made it feel better after exercises tighening during LTR to R. Physical Therapy Plan Frequency and Duration Frequency of Treatment 2x/Week Duration of Treatment 6 weeks Plan of Care Start Date 01/10/20 Plan of Care End Date 02/21/20 Therapeutic Interventions Therapeutic Interventions Balance Training,Gait Training ,Home Exercise Program,Joint Mobilizations,Manual Therapy, Neuromuscular Re-education, Patient/Caregiver Education, Self-Care/Home Management,Soft Tissue Mobilization,Taping, Therapeutic Activities, Therapeutic Exercises Modalities Cold Pack/Ice Massage,Electric Stimulation,Ultrasound Next Visit Focus/Plan Next Note Type Treatment Note Next Visit Plan Assess how patient felt after last session. Continue Central and unilateral PA mobilization of L5. Trigger point/myofascial release of piriformis, glut med, TFL. Continue core and hip strengthening as tolerated.
--- NOTE | 2020-01-29 09:45 | PT.OTN ---
Current Diagnoses Pain in right hip (01/29/20) Pain in left hip (01/29/20) Sacrococcygeal disorders, not elsewhere classified (01/29/20) Low back pain (01/29/20) Physical Therapy Treatment Note PT-OP-A Visit Information Start: 01/10/20 13:01 Freq: Status: Active Protocol: Document 01/25/20 13:49 SP (Rec: 01/25/20 15:28 SP [id number]) Out-Patient Physical Therapy Visit Information Visit Information Visit Type Treatment Note Visit Start Time 13:49 Visit Stop Time 14:30 Total Visit Minutes 41 Visit Number 5 Number of CERTIFIED APPLIANCE SERVICE TECHNICIAN Visits 2 PT-OP-B Current Condition Start: 01/10/20 13:01 Freq: Status: Active Protocol: Document 01/10/20 13:00 EG (Rec: 01/10/20 13:17 EG [id number]) Current Condition History of Current Condition Onset Date 12/29/2019 Current Complaints Low back pain with L hip pain History of Current Condition Patient reported that she had low back pain 1.5 years ago and after going to PT, the pain went away. On 12/29 she experienced low back pain with the pain mostly in the L hip area. She reports that the low back pain is not bad and her main complaint is more L hip pain. She reports not doing anything unusual before experiencing her pain, but she did yoga on the earlier in the day which she typically does 3-4x/week. She didn't experience any sharp pain or notice anything different when doing yoga but she feels the pain in hip is getting worse. Standing up from a low sitting position makes it worse as well as rotating towards the left side. At night her pain is pretty painful and she uses a heat pack to help alleviate the pain to sleep. She reports an average of 5/10 pain in the hip which is worse in the morning, better when moving throughout the day and then by the evening, shehas a lot of problems; she also reports having restless leg syndrome. Along with yoga, patient also reports walking about an hour 3-4x/week. No increase in pain on L hip with walking but sitting irritates the pain and when she reports that when she sits in a high or low chair and gets off she walks funny. She denies any N/ T initially but later explains that she does have a little numbness in the L leg. She denies any changes in bowel/ bladder. Patient currently lives with her . Prior Treatments and Tests Heat Pack Past PT for back Treatment Goals Patient/Caregiver Goals Decrease your pain - go back to normal life. Went to PT for 2 months. Prior Functional Status Baseline Function- ADL's Independent Baseline Function- Mobility Independent Baseline Function- Gait Walk 3-4x/week with for an hour Baseline Function- Work/School Retired Baseline Function- Recreation/Hobbies Activties/Hobbies: Fishing, golfing, yoga. Current Functional Impairments (Reported) Functional Limitations- ADL's Discomfort sleeping on L side Functional Limitations- Mobility/Gait Morning have trouble with stairs. Functional Limitations- Recreation/ Not going to yoga, decreased Hobbies walking speed and distance with Personal Factors Other Personal Factors That May Effect Current medications: BP meds. Therapy/Recovery cholesterol, restless leg, antiacid. past history of going to ED for TIA due to loss of vision for 20 min. Osteopenia PT-OP-C Subjective Start: 01/10/20 13:01 Freq: Status: Active Protocol: Document 01/25/20 13:49 SP (Rec: 01/25/20 15:28 SP [id number]) OP-PT Subjective Patient Comments Patient Comments Pt reports only pain in L hip around to the L LB in the morning, in weird positions laying down but better as day progresses. No pain pre PT. Pt stated was able to walk [facility] about 1 hr 15 min with no pain on uneven trails. PT-OP-G Mobility & Gait Start: 01/10/20 13:01 Freq: Status: Active Protocol: Document 01/10/20 13:00 EG (Rec: 01/11/20 08:56 EG [email or web address]) OP Mobility Evaluation Transfers Sit to Stand Reports pain with this activity when seated for long duration or moving from deep sofa OP Gait Assessment Comments Gait Comments Patient had increased pelvic movement in L side with increased lateral deviation. Movement of pelvis assymmetrical PT-OP-J Posture/Palpation/Skin Start: 01/10/20 13:01 Freq: Status: Active Protocol: Document 01/10/20 13:00 EG (Rec: 01/11/20 08:56 EG [email or web address]) Palpation Assessment Location Four Palpation Location L1-L5 Palpation Findings Tenderness Palpation Details Patient had increased pain directly over L2-L3 but is just point tenderness. felt good for PA of L5. Three Palpation Location Bilateral Erector Spinae Palpation Findings None/Normal Palpation Details No increase in tenderness or tightness in bilateral erector spinae Two Palpation Location L ischial tuberosity Palpation Findings Tenderness Palpation Details Increased tenderness of L ischial tuberosity compares to R. Reported as same pain that patient experiences when seated One Palpation Location L gluteal musculature/ piriformis Palpation Findings None/Normal Palpation Details No increase in symptoms PT-OP-K Range of Motion Start: 01/10/20 13:01 Freq: Status: Active Protocol: Document 01/10/20 13:00 EG (Rec: 01/11/20 08:56 EG [email or web address]) Lumbar Spine Range of Motion Lumbar Spine Degrees Testing Position Standing Flexion 20 Extension 10 Lateral Flexion Left 20 Lateral Flexion Right 25 ROM Limitations Pain Comments P! in back moving in to lumbar flexion. P! moving in to lumbar extension. Lateral flexion to the R creates p! in L hip. Lateral flexion to L created p! in back PT-OP-L Special Tests Start: 01/10/20 13:01 Freq: Status: Active Protocol: Document 01/10/20 13:00 EG (Rec: 01/11/20 08:56 EG [email or web address]) Special Tests Lumbar Spine Special Tests Standing Flexion Test Results + Straight Leg Raise Test Results + Comments Increased p! in R leg at 45deg Hip Special Tests Piriformis Test Results - IVANIA Test Results - PT-OP-M Strength Start: 01/10/20 13:01 Freq: Status: Active Protocol: Document 01/10/20 13:00 EG (Rec: 01/11/20 08:56 EG [email or web address]) Hip Strength Hip Manual Muscle Testing Right Flexion (L2) 4- Good- Extension (S1) 4- Good- Abduction 4- Good- External Rotation 4 Good Internal Rotation 4 Good Left Flexion (L2) 4- Good- Extension (S1) 3+ Fair+ Abduction 3+ Fair+ External Rotation 4 Good Internal Rotation 4 Good Comments No increase in pain Knee Strength Knee Manual Muscle Testing Right Flexion (S2) 4 Good Extension (L3) 4 Good Left Flexion (S2) 4 Good Extension (L3) 4 Good Ankle/Foot Strength Ankle and Foot Manual Muscle Testing Right Dorsiflexion (L4) 4+ Good+ Left Dorsiflexion (L4) 4+ Good+ PT-OP-Q Treatments Start: 01/10/20 13:01 Freq: Status: Active Protocol: Document 01/25/20 13:49 SP (Rec: 01/25/20 15:28 SP [id number]) Cardio Equipment Treadmill Duration (Minutes) 8 Speed 2.3-2.5 Incline 1.0-2.0 Other no Ue support Gym Equipment Cable Column (Body Solid) pull down Resistance #2 Reps/Time x10 Rows Resistance #2 Reps/Time x10 Therapeutic Exercises Supine Exercises LTR supine Supine Exercise Name Supine LTR Reps/Minutes 10 each side hold 5-10 sec each Comments no increase in pain Prone Exercises LE hip ext Side bilateral Reps/Minutes x10 Comments cued prone on hands Sitting Exercises PF stretch Side bilateral Reps/Minutes 30 x2 Comments R tighter than L today Standing Exercises Step-up Standing Exercise Name single repetitive Step-up Side bilateral Equipment Used 4 step x10, 6 inch step x10 Comments no Ue support gastroc/HS stretch Standing Exercise Name gastroc/HS stretch Side bilateral Reps/Minutes 30sec each Comments 2x30 for gastroc Other Exercises modified bird dog Other Exercise Name bird dog Ue/ LE ext together Side bilateral Reps/Minutes x5 Comments cued slow pacing, on fists to assist wrist comfort Manual Therapy Treatment Soft Tissue Mobilization Piriformis Trigger Point Release Body Location L pirformis, Glut Med, TFL Mobilization Type Trigger Point Release Intensity/Depth Moderate Body Position Prone Comments PRone manual, standing theracane Instruction in self performance or racquetball at wall in R >L PF for home relief. PT-OP-T Assessment and Plan Start: 01/10/20 13:01 Freq: Status: Active Protocol: Document 01/25/20 13:49 SP (Rec: 01/25/20 15:28 SP [id number]) Physical Therapy Assessment Goals ROM Impairment Lumbar spine ROM Correction Goal (LTG) Patient will increase lumbar flexion to 40 degrees with no increase in pain in low back in 6 weeks to increase tolerance to forward folds in yoga. LTG Duration 6 weeks Stairs and walking tolerance Impairment Stairs and Walking tolerance Short Term Goal (STG) Patient will be able to do stairs in the morning after 5- 10 minutes of being awake with no more than 2/10 in L hip and back in 3 weeks. STG Duration 3 weeks Correction Goal (LTG) Patient will be able to return to prior walking distance and speed with no increase in pain in L hip and back in 6 weeks. LTG Duration 6 weeks Sitting Tolerance Impairment Sitting Tolerance Short Term Goal (STG) Patient will be able to sit for >30 minutes with no increase in pain greater than 1/10 in her L hip in 4 weeks. STG Duration 3 weeks Correction Goal (LTG) Patient will be able to sit for greater than 1 hour and stand from deep sofa with no increase in pain in her L hip >1/10 in 8 weeks. LTG Duration 6 weeks Assessment Summary Assessment Pt reported when used to go to the gym did 2.8 mph on TM at 7% incline with no UE support, would like to get back to doing that. Instructed patient use of theracane over glut med for self STMs after manual and she stated similar to cane uses at home but might get racquet ball as well for wall as did last tx. Provided cues for prone L ext and bird dog for proper form with slow pacing. Pt responded well and stated helpful with no pain made it feel better after exercises tighening during LTR to R. Physical Therapy Plan Frequency and Duration Frequency of Treatment 2x/Week Duration of Treatment 6 weeks Plan of Care Start Date 01/10/20 Plan of Care End Date 02/21/20 Therapeutic Interventions Therapeutic Interventions Balance Training,Gait Training ,Home Exercise Program,Joint Mobilizations,Manual Therapy, Neuromuscular Re-education, Patient/Caregiver Education, Self-Care/Home Management,Soft Tissue Mobilization,Taping, Therapeutic Activities, Therapeutic Exercises Modalities Cold Pack/Ice Massage,Electric Stimulation,Ultrasound Next Visit Focus/Plan Next Note Type Treatment Note Next Visit Plan Assess how patient felt after last session. Continue Central and unilateral PA mobilization of L5. Trigger point/myofascial release of piriformis, glut med, TFL. Continue core and hip strengthening as tolerated.
--- NOTE | 2020-01-29 10:30 | PT.OTN ---
Current Diagnoses Pain in right hip (01/29/20) Pain in left hip (01/29/20) Sacrococcygeal disorders, not elsewhere classified (01/29/20) Low back pain (01/29/20) Physical Therapy Treatment Note PT-OP-A Visit Information Start: 01/10/20 13:01 Freq: Status: Active Protocol: Document 01/29/20 09:47 SP (Rec: 01/29/20 10:45 SP [id number]) Out-Patient Physical Therapy Visit Information Visit Information Visit Type Treatment Note Visit Start Time 09:47 Visit Stop Time 10:30 Total Visit Minutes 43 Visit Number 6 Number of ROLL REPAIRER Visits 3 PT-OP-B Current Condition Start: 01/10/20 13:01 Freq: Status: Active Protocol: Document 01/10/20 13:00 EG (Rec: 01/10/20 13:17 EG [id number]) Current Condition History of Current Condition Onset Date 12/29/2019 Current Complaints Low back pain with L hip pain History of Current Condition Patient reported that she had low back pain 1.5 years ago and after going to PT, the pain went away. On 12/29 she experienced low back pain with the pain mostly in the L hip area. She reports that the low back pain is not bad and her main complaint is more L hip pain. She reports not doing anything unusual before experiencing her pain, but she did yoga on the earlier in the day which she typically does 3-4x/week. She didn't experience any sharp pain or notice anything different when doing yoga but she feels the pain in hip is getting worse. Standing up from a low sitting position makes it worse as well as rotating towards the left side. At night her pain is pretty painful and she uses a heat pack to help alleviate the pain to sleep. She reports an average of 5/10 pain in the hip which is worse in the morning, better when moving throughout the day and then by the evening, shehas a lot of problems; she also reports having restless leg syndrome. Along with yoga, patient also reports walking about an hour 3-4x/week. No increase in pain on L hip with walking but sitting irritates the pain and when she reports that when she sits in a high or low chair and gets off she walks funny. She denies any N/ T initially but later explains that she does have a little numbness in the L leg. She denies any changes in bowel/ bladder. Patient currently lives with her . Prior Treatments and Tests Heat Pack Past PT for back Treatment Goals Patient/Caregiver Goals Decrease your pain - go back to normal life. Went to PT for 2 months. Prior Functional Status Baseline Function- ADL's Independent Baseline Function- Mobility Independent Baseline Function- Gait Walk 3-4x/week with for an hour Baseline Function- Work/School Retired Baseline Function- Recreation/Hobbies Activties/Hobbies: Fishing, golfing, yoga. Current Functional Impairments (Reported) Functional Limitations- ADL's Discomfort sleeping on L side Functional Limitations- Mobility/Gait Morning have trouble with stairs. Functional Limitations- Recreation/ Not going to yoga, decreased Hobbies walking speed and distance with Personal Factors Other Personal Factors That May Effect Current medications: BP meds. Therapy/Recovery cholesterol, restless leg, antiacid. past history of going to ED for TIA due to loss of vision for 20 min. Osteopenia PT-OP-C Subjective Start: 01/10/20 13:01 Freq: Status: Active Protocol: Document 01/29/20 09:47 SP (Rec: 01/29/20 10:45 SP [id number]) OP-PT Subjective Patient Comments Patient Comments Pt reproted little L hip discomfort 2/10 pre PT but over all getting better. Doesn 't have pain usually during her walks outside but still little when sits more than 30 min and if goes up stairs to quickly. PT-OP-G Mobility & Gait Start: 01/10/20 13:01 Freq: Status: Active Protocol: Document 01/10/20 13:00 EG (Rec: 01/11/20 08:56 EG [email or web address]) OP Mobility Evaluation Transfers Sit to Stand Reports pain with this activity when seated for long duration or moving from deep sofa OP Gait Assessment Comments Gait Comments Patient had increased pelvic movement in L side with increased lateral deviation. Movement of pelvis assymmetrical PT-OP-J Posture/Palpation/Skin Start: 01/10/20 13:01 Freq: Status: Active Protocol: Document 01/10/20 13:00 EG (Rec: 01/11/20 08:56 EG [email or web address]) Palpation Assessment Location Four Palpation Location L1-L5 Palpation Findings Tenderness Palpation Details Patient had increased pain directly over L2-L3 but is just point tenderness. felt good for PA of L5. Three Palpation Location Bilateral Erector Spinae Palpation Findings None/Normal Palpation Details No increase in tenderness or tightness in bilateral erector spinae Two Palpation Location L ischial tuberosity Palpation Findings Tenderness Palpation Details Increased tenderness of L ischial tuberosity compares to R. Reported as same pain that patient experiences when seated One Palpation Location L gluteal musculature/ piriformis Palpation Findings None/Normal Palpation Details No increase in symptoms PT-OP-K Range of Motion Start: 01/10/20 13:01 Freq: Status: Active Protocol: Document 01/10/20 13:00 EG (Rec: 01/11/20 08:56 EG [email or web address]) Lumbar Spine Range of Motion Lumbar Spine Degrees Testing Position Standing Flexion 20 Extension 10 Lateral Flexion Left 20 Lateral Flexion Right 25 ROM Limitations Pain Comments P! in back moving in to lumbar flexion. P! moving in to lumbar extension. Lateral flexion to the R creates p! in L hip. Lateral flexion to L created p! in back PT-OP-L Special Tests Start: 01/10/20 13:01 Freq: Status: Active Protocol: Document 01/10/20 13:00 EG (Rec: 01/11/20 08:56 EG [email or web address]) Special Tests Lumbar Spine Special Tests Standing Flexion Test Results + Straight Leg Raise Test Results + Comments Increased p! in R leg at 45deg Hip Special Tests Piriformis Test Results - IVANIA Test Results - PT-OP-M Strength Start: 01/10/20 13:01 Freq: Status: Active Protocol: Document 01/10/20 13:00 EG (Rec: 01/11/20 08:56 EG [email or web address]) Hip Strength Hip Manual Muscle Testing Right Flexion (L2) 4- Good- Extension (S1) 4- Good- Abduction 4- Good- External Rotation 4 Good Internal Rotation 4 Good Left Flexion (L2) 4- Good- Extension (S1) 3+ Fair+ Abduction 3+ Fair+ External Rotation 4 Good Internal Rotation 4 Good Comments No increase in pain Knee Strength Knee Manual Muscle Testing Right Flexion (S2) 4 Good Extension (L3) 4 Good Left Flexion (S2) 4 Good Extension (L3) 4 Good Ankle/Foot Strength Ankle and Foot Manual Muscle Testing Right Dorsiflexion (L4) 4+ Good+ Left Dorsiflexion (L4) 4+ Good+ PT-OP-Q Treatments Start: 01/10/20 13:01 Freq: Status: Active Protocol: Document 01/29/20 09:47 SP (Rec: 01/29/20 10:45 SP [id number]) Cardio Equipment Treadmill Duration (Minutes) 8 Speed 2.3-2.5 Incline 1.0-2.0 Other no Ue support Therapeutic Exercises Supine Exercises LTR supine Supine Exercise Name Supine LTR Reps/Minutes 10 each side hold 5-10 sec each Comments Reported very little L hip discomfort but ok during R rotation Hamstring Stretch Supine Exercise Name HS stretch Side bilateral Equipment Used strap Reps/Minutes 1 min Comments revew HEP Prone Exercises LE hip ext Side bilateral Reps/Minutes x10 Comments cued prone belly child's pose side bend Prone Exercise Name Child's pose with side bend Side bilateral Reps/Minutes 30 sec each side x2 Comments pillow under heels Sitting Exercises PF stretch Side bilateral Reps/Minutes 30 x2 Comments R tighter than L today Standing Exercises Step-up Standing Exercise Name step ups Side bilateral Equipment Used 6 inch step x10 leading each LE Comments no Ue suppor, no pain Hip Abduction/extension Standing Exercise Name Hip abduction/Hip extension Side bilateral Resistance TB #1 loop Equipment Used stair rail for support Reps/Minutes 2x10 each leg and each direction Comments Slightly more pain in L hip at end of set 2 but tolerable Other Exercises modified bird dog Other Exercise Name bird dog Side bilateral Equipment Used small blue jamaican ball under belly, noodle under wrists Reps/Minutes x10 Comments cued slow pacing core stability and tolerant easy lift Manual Therapy Treatment Soft Tissue Mobilization Piriformis Trigger Point Release Body Location L pirformis, Glut Med Mobilization Type Cross-Friction,Trigger Point Release Intensity/Depth Moderate Body Position Prone Comments PRone manual PT-OP-T Assessment and Plan Start: 01/10/20 13:01 Freq: Status: Active Protocol: Document 01/29/20 09:47 SP (Rec: 01/29/20 10:45 SP [id number]) Physical Therapy Assessment Goals ROM Impairment Lumbar spine ROM Care Home Goal (LTG) Patient will increase lumbar flexion to 40 degrees with no increase in pain in low back in 6 weeks to increase tolerance to forward folds in yoga. LTG Duration 6 weeks Stairs and walking tolerance Impairment Stairs and Walking tolerance Short Term Goal (STG) Patient will be able to do stairs in the morning after 5- 10 minutes of being awake with no more than 2/10 in L hip and back in 3 weeks. 01/29/20 reports improvement, sometimes has pain not always. STG Duration 3 weeks Care Home Goal (LTG) Patient will be able to return to prior walking distance and speed with no increase in pain in L hip and back in 6 weeks. 01/29/20 Improving on treadmill has little pain2/10 but walked [facility] [place] uneven trail and no pain. LTG Duration 6 weeks Sitting Tolerance Impairment Sitting Tolerance Short Term Goal (STG) Patient will be able to sit for >30 minutes with no increase in pain greater than 1/10 in her L hip in 4 weeks. 01/29/20 improvement some pain2 /10 between 30-60 m in. STG Duration 3 weeks Care Home Goal (LTG) Patient will be able to sit for greater than 1 hour and stand from deep sofa with no increase in pain in her L hip >1/10 in 8 weeks. LTG Duration 6 weeks Assessment Summary Assessment Pt improving in mobility walks outside and able to sit longer 30 - 60min before low level pain in L hip starts but not as bad. Pt improvement in proper form bird dog today over small blue jamaican ball with no pain in B wrists now. Improvement in PPT stabilization during exercises . No adverse reactions and very low level discomfort in L hip during resisted hip abd & ext today, added to HEP. Pt reported no pain end of tx after manual STM L hip. Physical Therapy Plan Frequency and Duration Frequency of Treatment 2x/Week Duration of Treatment 6 weeks Plan of Care Start Date 01/10/20 Plan of Care End Date 02/21/20 Therapeutic Interventions Therapeutic Interventions Balance Training,Gait Training ,Home Exercise Program,Joint Mobilizations,Manual Therapy, Neuromuscular Re-education, Patient/Caregiver Education, Self-Care/Home Management,Soft Tissue Mobilization,Taping, Therapeutic Activities, Therapeutic Exercises Modalities Cold Pack/Ice Massage,Electric Stimulation,Ultrasound Next Visit Focus/Plan Next Note Type Treatment Note Next Visit Plan Assess response to added hip abd/ext TB, prone swill ball bird dog and HEP review. Continue per PT POC: Central and unilateral PA mobilization of L5. Trigger point/ myofascial release of piriformis, glut med, TFL. Continue core and hip strengthening as tolerated.
--- NOTE | 2020-01-31 11:18 | PT.OTN ---
Current Diagnoses Pain in right hip (01/31/20) Pain in left hip (01/31/20) Sacrococcygeal disorders, not elsewhere classified (01/31/20) Low back pain (01/31/20) Physical Therapy Treatment Note PT-OP-A Visit Information Start: 01/10/20 13:01 Freq: Status: Active Protocol: Document 01/31/20 09:03 EG (Rec: 01/31/20 10:22 EG [email or web address]) Out-Patient Physical Therapy Visit Information Visit Information Visit Type Treatment Note Visit Start Time 09:03 Visit Stop Time 09:45 Total Visit Minutes 42 Visit Number 7 Number of [employer] M[employer] Visits 0 PT-OP-B Current Condition Start: 01/10/20 13:01 Freq: Status: Active Protocol: Document 01/10/20 13:00 EG (Rec: 01/10/20 13:17 EG [id number]) Current Condition History of Current Condition Onset Date 12/29/2019 Current Complaints Low back pain with L hip pain History of Current Condition Patient reported that she had low back pain 1.5 years ago and after going to PT, the pain went away. On 12/29 she experienced low back pain with the pain mostly in the L hip area. She reports that the low back pain is not bad and her main complaint is more L hip pain. She reports not doing anything unusual before experiencing her pain, but she did yoga on the earlier in the day which she typically does 3-4x/week. She didn't experience any sharp pain or notice anything different when doing yoga but she feels the pain in hip is getting worse. Standing up from a low sitting position makes it worse as well as rotating towards the left side. At night her pain is pretty painful and she uses a heat pack to help alleviate the pain to sleep. She reports an average of 5/10 pain in the hip which is worse in the morning, better when moving throughout the day and then by the evening, shehas a lot of problems; she also reports having restless leg syndrome. Along with yoga, patient also reports walking about an hour 3-4x/week. No increase in pain on L hip with walking but sitting irritates the pain and when she reports that when she sits in a high or low chair and gets off she walks funny. She denies any N/ T initially but later explains that she does have a little numbness in the L leg. She denies any changes in bowel/ bladder. Patient currently lives with her . Prior Treatments and Tests Heat Pack Past PT for back Treatment Goals Patient/Caregiver Goals Decrease your pain - go back to normal life. Went to PT for 2 months. Prior Functional Status Baseline Function- ADL's Independent Baseline Function- Mobility Independent Baseline Function- Gait Walk 3-4x/week with for an hour Baseline Function- Work/School Retired Baseline Function- Recreation/Hobbies Activties/Hobbies: Fishing, golfing, yoga. Current Functional Impairments (Reported) Functional Limitations- ADL's Discomfort sleeping on L side Functional Limitations- Mobility/Gait Morning have trouble with stairs. Functional Limitations- Recreation/ Not going to yoga, decreased Hobbies walking speed and distance with Personal Factors Other Personal Factors That May Effect Current medications: BP meds. Therapy/Recovery cholesterol, restless leg, antiacid. past history of going to ED for TIA due to loss of vision for 20 min. Osteopenia PT-OP-C Subjective Start: 01/10/20 13:01 Freq: Status: Active Protocol: Document 01/31/20 09:03 EG (Rec: 01/31/20 09:50 EG [id number]) OP-PT Subjective Patient Comments Patient Comments Patient is doing well today. She reports a 2-3/10 on left side. She can feel the difference side to side when walking on treadmill. She reports doing some yoga stretches at home and her exercises which helps with pain. She went to [place] and did a 2 hour walk with no increase in pain. She is wondering if she should stay home and do therapy there because of the Coronavirus Patient Reported Progress Improving PT-OP-G Mobility & Gait Start: 01/10/20 13:01 Freq: Status: Active Protocol: Document 01/10/20 13:00 EG (Rec: 01/11/20 08:56 EG [email or web address]) OP Mobility Evaluation Transfers Sit to Stand Reports pain with this activity when seated for long duration or moving from deep sofa OP Gait Assessment Comments Gait Comments Patient had increased pelvic movement in L side with increased lateral deviation. Movement of pelvis assymmetrical PT-OP-J Posture/Palpation/Skin Start: 01/10/20 13:01 Freq: Status: Active Protocol: Document 01/10/20 13:00 EG (Rec: 01/11/20 08:56 EG [email or web address]) Palpation Assessment Location Four Palpation Location L1-L5 Palpation Findings Tenderness Palpation Details Patient had increased pain directly over L2-L3 but is just point tenderness. felt good for PA of L5. Three Palpation Location Bilateral Erector Spinae Palpation Findings None/Normal Palpation Details No increase in tenderness or tightness in bilateral erector spinae Two Palpation Location L ischial tuberosity Palpation Findings Tenderness Palpation Details Increased tenderness of L ischial tuberosity compares to R. Reported as same pain that patient experiences when seated One Palpation Location L gluteal musculature/ piriformis Palpation Findings None/Normal Palpation Details No increase in symptoms PT-OP-K Range of Motion Start: 01/10/20 13:01 Freq: Status: Active Protocol: Document 01/10/20 13:00 EG (Rec: 01/11/20 08:56 EG [email or web address]) Lumbar Spine Range of Motion Lumbar Spine Degrees Testing Position Standing Flexion 20 Extension 10 Lateral Flexion Left 20 Lateral Flexion Right 25 ROM Limitations Pain Comments P! in back moving in to lumbar flexion. P! moving in to lumbar extension. Lateral flexion to the R creates p! in L hip. Lateral flexion to L created p! in back PT-OP-L Special Tests Start: 01/10/20 13:01 Freq: Status: Active Protocol: Document 01/10/20 13:00 EG (Rec: 01/11/20 08:56 EG [email or web address]) Special Tests Lumbar Spine Special Tests Standing Flexion Test Results + Straight Leg Raise Test Results + Comments Increased p! in R leg at 45deg Hip Special Tests Piriformis Test Results - IVANIA Test Results - PT-OP-M Strength Start: 01/10/20 13:01 Freq: Status: Active Protocol: Document 01/10/20 13:00 EG (Rec: 01/11/20 08:56 EG [email or web address]) Hip Strength Hip Manual Muscle Testing Right Flexion (L2) 4- Good- Extension (S1) 4- Good- Abduction 4- Good- External Rotation 4 Good Internal Rotation 4 Good Left Flexion (L2) 4- Good- Extension (S1) 3+ Fair+ Abduction 3+ Fair+ External Rotation 4 Good Internal Rotation 4 Good Comments No increase in pain Knee Strength Knee Manual Muscle Testing Right Flexion (S2) 4 Good Extension (L3) 4 Good Left Flexion (S2) 4 Good Extension (L3) 4 Good Ankle/Foot Strength Ankle and Foot Manual Muscle Testing Right Dorsiflexion (L4) 4+ Good+ Left Dorsiflexion (L4) 4+ Good+ PT-OP-Q Treatments Start: 01/10/20 13:01 Freq: Status: Active Protocol: Document 01/31/20 09:03 EG (Rec: 01/31/20 10:22 EG [email or web address]) Therapeutic Exercises Supine Exercises LTR supine Supine Exercise Name Supine LTR Reps/Minutes 10 each side hold 5-10 sec each Comments cue to bring feet hip width apart core march Supine Exercise Name Core march with TA engagement Side bilateral Reps/Minutes 10x Comments cue to keep both knees up for increased challenge Hamstring Stretch Supine Exercise Name HS stretch Side bilateral Reps/Minutes 1 min Comments Contract/Relax with therapist TA pelvic tilt Supine Exercise Name TA Pelvic Tilt Reps/Minutes 10x Comments given cue to cough to feel engagement Prone Exercises Alternating leg/arm lift prone Prone Exercise Name Alternating arm/leg lift prone Side bilateral Reps/Minutes 8x each side Comments give cue to lift R arm, L leg and head and alternate LE hip ext Side bilateral Reps/Minutes x10 Comments knee bent Cobra Prone Exercise Name Cobra Reps/Minutes 10x Comments HEP - told to not press as high to decrease wrist strain child's pose side bend Prone Exercise Name Child's pose with side bend Side bilateral Reps/Minutes 30 sec each side Sitting Exercises PF stretch Side bilateral Reps/Minutes 30 x2 Comments R tighter than L today Standing Exercises ITB stretch Standing Exercise Name ITB stretch Side bilateral Equipment Used Table to rest hands Reps/Minutes 1 min Comments R leg crossed behind L and alternate Other Exercises Cat/Cow Other Exercise Name Cat/Cow Reps/Minutes 8x Comments HEP Manual Therapy Treatment Soft Tissue Mobilization Piriformis Trigger Point Release Body Location L pirformis, Glut Med Mobilization Type Cross-Friction,Trigger Point Release Intensity/Depth Moderate Body Position Prone Comments R sidelying PT-OP-T Assessment and Plan Start: 01/10/20 13:01 Freq: Status: Active Protocol: Document 01/31/20 09:03 EG (Rec: 01/31/20 10:22 EG [email or web address]) Physical Therapy Assessment Assessment Summary Assessment Patient has improved functionally but still has a lingering pain in L Piriformis /Gluteal region that continues to radiate when standing for increased periods of time but is not aggravated with 2 hours of walking. Patient is concerned about coming to appointments because of coronavirus so HEP was reviewed and patient was given core strengthening exercises, gluteal and back extensors strengthening exercises, as well as piriformis and gluteal stretching to perform at home for 2 weeks. Patient was also told to perform self trigger- point release with her theracane at home. When she returns, assess how patient is feeling and consider discharge. Physical Therapy Plan Frequency and Duration Frequency of Treatment 2x/Week Duration of Treatment 6 weeks Plan of Care Start Date 01/10/20 Plan of Care End Date 02/21/20 Next Visit Focus/Plan Next Note Type Discharge Summary Next Visit Plan Consider discharging if improvement. She will return . Review how HEP is and how the lingering pain in hip is. Hannah Osuna DPT, supervised all treatment performed by, and agreed with the plan of care, as performed by Shawanda Rob, SPT.
--- NOTE | 2020-06-19 07:24 | PT.OPDS ---
Current Diagnoses Pain in right hip (01/31/20) Pain in left hip (01/31/20) Sacrococcygeal disorders, not elsewhere classified (01/31/20) Low back pain (01/31/20) Visit Care Team Role Provider Type Julienne Hanna MD Attending Provider Non-Staff Referring Provider Specialty: Internal Medicine Address: [address] [place] [address], [phone] Email: Visit Number Visit Number 7 Discharge Summary PT-OP-B Current Condition Start: 01/10/20 13:01 Freq: Status: Active Protocol: Document 01/10/20 13:00 EG (Rec: 01/10/20 13:17 EG [id number]) Current Condition History of Current Condition Onset Date 12/29/2019 Current Complaints Low back pain with L hip pain History of Current Condition Patient reported that she had low back pain 1.5 years ago and after going to PT, the pain went away. On 12/29 she experienced low back pain with the pain mostly in the L hip area. She reports that the low back pain is not bad and her main complaint is more L hip pain. She reports not doing anything unusual before experiencing her pain, but she did yoga on the earlier in the day which she typically does 3-4x/week. She didn't experience any sharp pain or notice anything different when doing yoga but she feels the pain in hip is getting worse. Standing up from a low sitting position makes it worse as well as rotating towards the left side. At night her pain is pretty painful and she uses a heat pack to help alleviate the pain to sleep. She reports an average of 5/10 pain in the hip which is worse in the morning, better when moving throughout the day and then by the evening, shehas a lot of problems; she also reports having restless leg syndrome. Along with yoga, patient also reports walking about an hour 3-4x/week. No increase in pain on L hip with walking but sitting irritates the pain and when she reports that when she sits in a high or low chair and gets off she walks funny. She denies any N/ T initially but later explains that she does have a little numbness in the L leg. She denies any changes in bowel/ bladder. Patient currently lives with her . Prior Treatments and Tests Heat Pack Past PT for back Treatment Goals Patient/Caregiver Goals Decrease your pain - go back to normal life. Went to PT for 2 months. Prior Functional Status Baseline Function- ADL's Independent Baseline Function- Mobility Independent Baseline Function- Gait Walk 3-4x/week with for an hour Baseline Function- Work/School Retired Baseline Function- Recreation/Hobbies Activties/Hobbies: Fishing, golfing, yoga. Current Functional Impairments (Reported) Functional Limitations- ADL's Discomfort sleeping on L side Functional Limitations- Mobility/Gait Morning have trouble with stairs. Functional Limitations- Recreation/ Not going to yoga, decreased Hobbies walking speed and distance with Personal Factors Other Personal Factors That May Effect Current medications: BP meds. Therapy/Recovery cholesterol, restless leg, antiacid. past history of going to ED for TIA due to loss of vision for 20 min. Osteopenia PT-OP-C Subjective Start: 01/10/20 13:01 Freq: Status: Active Protocol: Document 01/31/20 09:03 EG (Rec: 01/31/20 09:50 EG [id number]) OP-PT Subjective Patient Comments Patient Comments Patient is doing well today. She reports a 2-3/10 on left side. She can feel the difference side to side when walking on treadmill. She reports doing some yoga stretches at home and her exercises which helps with pain. She went to [place] and did a 2 hour walk with no increase in pain. She is wondering if she should stay home and do therapy there because of the Coronavirus Patient Reported Progress Improving PT-OP-G Mobility & Gait Start: 01/10/20 13:01 Freq: Status: Active Protocol: Document 01/10/20 13:00 EG (Rec: 01/11/20 08:56 EG [email or web address]) OP Mobility Evaluation Transfers Sit to Stand Reports pain with this activity when seated for long duration or moving from deep sofa OP Gait Assessment Comments Gait Comments Patient had increased pelvic movement in L side with increased lateral deviation. Movement of pelvis assymmetrical PT-OP-J Posture/Palpation/Skin Start: 01/10/20 13:01 Freq: Status: Active Protocol: Document 01/10/20 13:00 EG (Rec: 02/28/20 08:56 EG [email or web address]) Palpation Assessment Location Four Palpation Location L1-L5 Palpation Findings Tenderness Palpation Details Patient had increased pain directly over L2-L3 but is just point tenderness. felt good for PA of L5. Three Palpation Location Bilateral Erector Spinae Palpation Findings None/Normal Palpation Details No increase in tenderness or tightness in bilateral erector spinae Two Palpation Location L ischial tuberosity Palpation Findings Tenderness Palpation Details Increased tenderness of L ischial tuberosity compares to R. Reported as same pain that patient experiences when seated One Palpation Location L gluteal musculature/ piriformis Palpation Findings None/Normal Palpation Details No increase in symptoms PT-OP-K Range of Motion Start: 01/10/20 13:01 Freq: Status: Active Protocol: Document 01/10/20 13:00 EG (Rec: 01/11/20 08:56 EG [email or web address]) Lumbar Spine Range of Motion Lumbar Spine Degrees Testing Position Standing Flexion 20 Extension 10 Lateral Flexion Left 20 Lateral Flexion Right 25 ROM Limitations Pain Comments P! in back moving in to lumbar flexion. P! moving in to lumbar extension. Lateral flexion to the R creates p! in L hip. Lateral flexion to L created p! in back PT-OP-L Special Tests Start: 01/10/20 13:01 Freq: Status: Active Protocol: Document 01/10/20 13:00 EG (Rec: 01/11/20 08:56 EG [email or web address]) Special Tests Lumbar Spine Special Tests Standing Flexion Test Results + Straight Leg Raise Test Results + Comments Increased p! in R leg at 45deg Hip Special Tests Piriformis Test Results - IVANIA Test Results - PT-OP-M Strength Start: 01/10/20 13:01 Freq: Status: Active Protocol: Document 01/10/20 13:00 EG (Rec: 01/11/20 08:56 EG [email or web address]) Hip Strength Hip Manual Muscle Testing Right Flexion (L2) 4- Good- Extension (S1) 4- Good- Abduction 4- Good- External Rotation 4 Good Internal Rotation 4 Good Left Flexion (L2) 4- Good- Extension (S1) 3+ Fair+ Abduction 3+ Fair+ External Rotation 4 Good Internal Rotation 4 Good Comments No increase in pain Knee Strength Knee Manual Muscle Testing Right Flexion (S2) 4 Good Extension (L3) 4 Good Left Flexion (S2) 4 Good Extension (L3) 4 Good Ankle/Foot Strength Ankle and Foot Manual Muscle Testing Right Dorsiflexion (L4) 4+ Good+ Left Dorsiflexion (L4) 4+ Good+ PT-OP-T Assessment and Plan Start: 01/10/20 13:01 Freq: Status: Active Protocol: Document 06/19/20 07:23 MB (Rec: 06/19/20 07:24 MB [id number]) Physical Therapy Plan Discharge Physical Therapy Discharge Reasons No Longer Attending PT Discharge Comments Pt has not been seen since before COVID closure. Clinic has left message to inquire about con't PT and pt has not returned call. Will d/c PT.
== END 2020-06-19 13:10 ==
LOC: PHYS 09:00
PROVIDERS: Referring Provider Internal Medicine; Visit Provider Internal Medicine
DX: M25.551 Pain in right hip (principal); M25.552 Pain in left hip; M54.5 Low back pain; M53.3 Sacrococcygeal disorders, not elsewhere classified
CPT/HCPCS: 97110; 97140; 97161